=== PATIENT | male | born 1935 | race Caucasian/White ===

== ENCOUNTER 2018-01-13 08:10 | Day surgery (SDC) | payer MEDICARE, OTHER ==
[~2018-01-13 08:10] MED LIST: Povidone-Iodine 5% Sterile Ophth Soln 30 ML Bottle EYELF ONE
[2018-01-13] MEDS ORDERED: Dexamethasone 4 MG/ML SDV IV ONE (08:11)
[2018-01-13] MEDS ORDERED: Midazolam 1 MG/ML 2 ML SDV IV ONE (08:11)
[2018-01-13] MEDS ORDERED: Sodium Chloride 0.9% 10 ML Syringe IV ONE (08:11)
[2018-01-13] MEDS ORDERED: Moxifloxacin 0.5% Ophth Soln 3 ML Bottle EYELF ONE (08:30)
[2018-01-13] MEDS ORDERED: Timolol Maleate 0.5% Ophth Soln 5 ML Bottle EYELF ONE (08:30)
[2018-01-13] MEDS ORDERED: Acetaminophen 325 MG Tab PO PRN (08:30)
[2018-01-13] MEDS ORDERED: Cataract Ophth Solution EYELF ONE (08:30)
[2018-01-13] MEDS ORDERED: Sodium Chloride 0.9% 10 ML Syringe FLUSH PRN (08:30)
[2018-01-13] MEDS ORDERED: Phenylephrine 10% Ophth Soln 5 ML Bot EYELF PRN (08:30)
[2018-01-13] MEDS ORDERED: Phenylephrine 10% Ophth Soln 5 ML Bot EYELF ONE (08:30)
[2018-01-13] MEDS ORDERED: Ondansetron 4 MG/2 ML SDV IVPUSH PRN (08:30)
[2018-01-13] MEDS ORDERED: Proparacaine 0.5% Ophth Soln 15 ML Bottle EYELF ONE (08:30)
[2018-01-13] MEDS ORDERED: Tetracaine HCl/PF 0.5% 4 ML Bottle EYELF ONE (09:44)
[2018-01-13] MEDS ORDERED: Vancomycin 500 MG SDV EYELF ONE (09:45)
[2018-01-13] MEDS ORDERED: Apraclonidine 0.5% Ophth Soln 5 ML Bot EYELF ONE (09:45)
[2018-01-13] MEDS ORDERED: Lidocaine 1% 30 ML SDV ONE (09:45)
[2018-01-13] MEDS ORDERED: Dexamethasone/Neomycin/Polymyxin B Ophth Oint 3.5 GM Tube EYELF ONE (09:45)
[2018-01-13] MEDS ORDERED: Balanced Salt Solution Ophth Irrig 500 ML Bottle IOCULAR ONE (09:46)
[2018-01-13] MEDS ORDERED: Chondroitin Sulfate/Hyaluronate Sodium Ophth Inj 0.5 ML Syringe IOCULAR ONE (09:46)
[2018-01-13] MEDS ORDERED: Diclofenac Sodium 0.1% Ophth Soln 5 ML Bottle EYELF ONE (09:46)
--- NOTE | 2018-01-14 07:26 | OR ---
DATE: 01/13/2018 PREOPERATIVE DIAGNOSIS: Visually significant mixed cataract, left eye. POSTOPERATIVE DIAGNOSIS: Visually significant mixed cataract, left eye. PROCEDURE: Extracapsular cataract extraction with intraocular lens implant, left eye. ANESTHESIA: Topical/local MAC. COMPLICATIONS: None. INDICATION: Mr. Coker was seen in the clinic with complaints of difficulty with bright lights and glare difficulty seeing his speedometer. His examination revealed visually significant mixed nuclear and cortical cataract. Visual acuity with oncoming light is at the level of 20 unable. I explained options, I offered cataract surgery, and I explained risks. He is symptomatic and requested surgery to improve vision and function. We discussed the implant options. He requested a monofocal implant. OPERATIVE DESCRIPTION: After informed consent was obtained and the risks, benefits, and alternatives were explained, the patient was brought to the operative suite and topical anesthesia was administered. The patient was then prepped and draped in the sterile fashion and attention was placed on the left eye. A sterile lid speculum was placed into the left eye to allow operative exposure. A full-thickness paracentesis was made in the temporal portion of the operative eye. Preservative-free lidocaine 0.1 mL was injected into the anterior chamber followed by viscoelastic. A full-thickness corneal incision was then made into the anterior chamber. A bent needle cystotome was used to create a small lisa in the anterior capsule. The capsulorrhexis forceps was then used to create a 360-degree curvilinear capsulorrhexis. The nucleus was then removed using a phacoemulsification handpiece and the remaining cortical material was then removed with irrigation and aspiration handpiece. Following removal of the cortical material, the capsular bag was then inspected and noted to be free of any holes or tears. Viscoelastic was then injected into the capsular bag and the intraocular lens was inserted into the capsular bag. The viscoelastic material was then removed from both the anterior and posterior chambers and from behind the IOL. The lens and capsular bag were then reinspected. The IOL was well centered and the capsular bag intact. The wound and paracentesis sites were inspected and hydrated with balanced saline solution. Both were found to be self- sealing. The intraocular pressure was assessed digitally and found to be within normal range. A good red reflex was noted at the completion of the procedure. No complications occurred during the operation. At the completion of the procedure, Maxitrol, Voltaren, and Iopidine drops were placed into the operative eye. A sterile eye shield was placed over the operative eye and the patient was transported to the postoperative recovery area having tolerated the procedure well. Postoperative instructions were given along with a postoperative appointment. The patient was advised to call with any questions or concerns. [facility] /[id number]
== END 2018-01-13 10:46 | disposition home or self-care (01) ==
LOC: DL.SDS 08:10
PROVIDERS: ATTEND Ophthalmology
DX: H25.812 Combined forms of age-related cataract, left eye (principal); I48.91 Unspecified atrial fibrillation; E55.9 Vitamin D deficiency, unspecified; Z79.01 Long term (current) use of anticoagulants; Z95.0 Presence of cardiac pacemaker; Z90.49 Acquired absence of other specified parts of digestive tract; Z87.891 Personal history of nicotine dependence
CPT/HCPCS: 00142; 66984; A9270; J1100; J2250; J3370; J7050; V2632

== ENCOUNTER 2018-03-10 07:52 | Day surgery (SDC) | payer MEDICARE, OTHER ==
[~2018-03-10 07:52] MED LIST changes: +Acetaminophen 325 MG Tab PO PRN; +Cataract Ophth Solution EYERT ONE; +Lidocaine 1% 30 ML SDV INJECT ONE; +Moxifloxacin 0.5% Ophth Soln 3 ML Bottle EYERT ONE; +Ondansetron 4 MG/2 ML SDV IVPUSH PRN; +Phenylephrine 10% Ophth Soln 5 ML Bot EYERT ONE; +Phenylephrine 10% Ophth Soln 5 ML Bot EYERT PRN; -Povidone-Iodine 5% Sterile Ophth Soln 30 ML Bottle EYELF ONE; +Povidone-Iodine 5% Sterile Ophth Soln 30 ML Bottle EYERT ONE; +Proparacaine 0.5% Ophth Soln 15 ML Bottle EYERT ONE; +Sodium Chloride 0.9% 10 ML Syringe FLUSH PRN; +Timolol Maleate 0.5% Ophth Soln 5 ML Bottle EYERT ONE
[2018-03-10] MEDS ORDERED: Midazolam 1 MG/ML 2 ML SDV IV ONE (07:53)
[2018-03-10] MEDS ORDERED: Dexamethasone 4 MG/ML SDV IV ONE (07:53)
[2018-03-10] MEDS ORDERED: Cataract Ophth Solution EYERT ONE (08:00)
[2018-03-10] MEDS ORDERED: Phenylephrine 10% Ophth Soln 5 ML Bot EYERT PRN (08:00)
[2018-03-10] MEDS ORDERED: Acetaminophen 325 MG Tab PO PRN (08:00)
[2018-03-10] MEDS ORDERED: Povidone-Iodine 5% Sterile Ophth Soln 30 ML Bottle EYERT ONE ×3 (08:00→09:17)
[2018-03-10] MEDS ORDERED: Phenylephrine 10% Ophth Soln 5 ML Bot EYERT ONE (08:00)
[2018-03-10] MEDS ORDERED: Moxifloxacin 0.5% Ophth Soln 3 ML Bottle EYERT ONE (08:00)
[2018-03-10] MEDS ORDERED: Ondansetron 4 MG/2 ML SDV IVPUSH PRN (08:00)
[2018-03-10] MEDS ORDERED: Sodium Chloride 0.9% 10 ML Syringe FLUSH PRN (08:00)
[2018-03-10] MEDS ORDERED: Timolol Maleate 0.5% Ophth Soln 5 ML Bottle EYERT ONE (08:00)
[2018-03-10] MEDS ORDERED: Proparacaine 0.5% Ophth Soln 15 ML Bottle EYERT ONE (08:00)
[2018-03-10] MEDS ORDERED: Tetracaine HCl/PF 0.5% 4 ML Bottle EYERT ONE (09:17)
[2018-03-10] MEDS ORDERED: Lidocaine 1% 30 ML SDV INJECT ONE (09:23)
[2018-03-10] MEDS ORDERED: Vancomycin 500 MG SDV EYERT ONE (09:23)
[2018-03-10] MEDS ORDERED: Balanced Salt Solution Ophth Irrig 500 ML Bottle IOCULAR ONE (09:25)
[2018-03-10] MEDS ORDERED: Chondroitin Sulfate/Hyaluronate Sodium Ophth Inj 0.5 ML Syringe IOCULAR ONE (09:25)
[2018-03-10] MEDS ORDERED: Apraclonidine 0.5% Ophth Soln 5 ML Bot EYERT ONE (09:31)
[2018-03-10] MEDS ORDERED: Dexamethasone/Neomycin/Polymyxin B Ophth Oint 3.5 GM Tube EYERT ONE (09:32)
--- NOTE | 2018-03-10 10:08 | OR ---
DATE: 03/10/2018 PREOPERATIVE DIAGNOSIS: Visually significant mixed cataract, right eye. POSTOPERATIVE DIAGNOSIS: Visually significant mixed cataract, right eye. PROCEDURE: Extracapsular cataract extraction with intraocular lens implant, right eye. ANESTHESIA: Topical/local MAC. COMPLICATIONS: None. INDICATION: Mr. Lamar was seen in the clinic. He is unhappy with his vision. He has noticed a progressive change. His clinical examination reveals visually significant cataract with both nuclear and cortical change. He is unhappy with his vision. He has requested cataract surgery. We have discussed implant options. He has requested a monofocal implant. He is comfortable wearing glasses following surgery. I explained the risks preoperatively including the potential for infection, retinal detachment, loss of vision, and need for additional surgery amongst others. He has voiced an understanding with respect to risks and wished to proceed. OPERATIVE DESCRIPTION: After informed consent was obtained and the risks, benefits, and alternatives were explained, the patient was brought to the operative suite and topical anesthesia was administered. The patient was then prepped and draped in the sterile fashion and attention was placed on the right eye. A sterile lid speculum was placed into the right eye to allow operative exposure. A full-thickness paracentesis was made in the temporal portion of the operative eye. Preservative-free lidocaine 0.1 mL was injected into the anterior chamber followed by viscoelastic. A full-thickness corneal incision was then made into the anterior chamber. A bent needle cystotome was used to create a small lisa in the anterior capsule. The capsulorrhexis forceps was then used to create a 360-degree curvilinear capsulorrhexis. The nucleus was then removed using a phacoemulsification handpiece, and the remaining cortical material was then removed with irrigation and aspiration handpiece. Following removal of the cortical material, the capsular bag was then inspected and noted to be free of any holes or tears. Viscoelastic was then injected into the capsular bag, and the intraocular lens was inserted into the capsular bag. The viscoelastic material was then removed from both the anterior and posterior chambers and from behind the IOL. The lens and capsular bag were then reinspected. The IOL was well centered and the capsular bag intact. The wound and paracentesis sites were inspected and hydrated with balanced saline solution. Both were found to be self-sealing. The intraocular pressure was assessed digitally and found to be within normal range. A good red reflex was noted at the completion of the procedure. No complications occurred during the operation. At the completion of the procedure, Maxitrol, Voltaren, and Iopidine drops were placed into the operative eye. A sterile eye shield was placed over the operative eye, and the patient was transported to the postoperative recovery area having tolerated the procedure well. Postoperative instructions were given along with a postoperative appointment. The patient was advised to call with any questions or concerns. [facility] /[id number]
== END 2018-03-10 10:30 | disposition home or self-care (01) ==
LOC: DL.SDS 07:52
PROVIDERS: ATTEND Ophthalmology
DX: H25.811 Combined forms of age-related cataract, right eye (principal); I12.9 Hypertensive chronic kidney disease with stage 1 through stage 4 chronic kidney disease, or unspecified chronic kidney disease; N18.3 Chronic kidney disease, stage 3 (moderate); E03.9 Hypothyroidism, unspecified; I48.91 Unspecified atrial fibrillation; D69.6 Thrombocytopenia, unspecified; Z79.01 Long term (current) use of anticoagulants; Z79.899 Other long term (current) drug therapy; Z95.0 Presence of cardiac pacemaker
CPT/HCPCS: 00142; A9270-GY; J1100; J2250; J3370; J7050; V2632

== ENCOUNTER 2018-04-09 08:24 | Day surgery (SDC) | payer MEDICARE, OTHER ==
[~2018-04-09 08:24] MED LIST changes: -Acetaminophen 325 MG Tab PO PRN; -Cataract Ophth Solution EYERT ONE; -Lidocaine 1% 30 ML SDV INJECT ONE; +Midazolam 1 MG/ML 2 ML SDV ONE; -Moxifloxacin 0.5% Ophth Soln 3 ML Bottle EYERT ONE; -Ondansetron 4 MG/2 ML SDV IVPUSH PRN; -Phenylephrine 10% Ophth Soln 5 ML Bot EYERT ONE; -Phenylephrine 10% Ophth Soln 5 ML Bot EYERT PRN; -Povidone-Iodine 5% Sterile Ophth Soln 30 ML Bottle EYERT ONE; -Proparacaine 0.5% Ophth Soln 15 ML Bottle EYERT ONE; -Sodium Chloride 0.9% 10 ML Syringe FLUSH PRN; -Timolol Maleate 0.5% Ophth Soln 5 ML Bottle EYERT ONE; +fentaNYL 100 MCG/2 ML SDV ONE
[2018-04-09] MEDS ORDERED: Midazolam 1 MG/ML 2 ML SDV IV ONE ×2 (08:25→09:59)
[2018-04-09] MEDS ORDERED: Sodium Chloride 0.9% 1,000 ML IV SCH (09:00)
[2018-04-09] MEDS ORDERED: Benzocaine 20% Oral Spray 59.2 ML Canister ONE (09:05)
[2018-04-09] MEDS ORDERED: Midazolam 1 MG/ML 2 ML SDV ONE (12:04)
--- NOTE | 2018-04-09 16:32 | OR ---
DATE: 04/09/2018 PREOPERATIVE DIAGNOSIS: Gastroesophageal reflux disease symptoms and increased belching. POSTOPERATIVE DIAGNOSIS: Gastroesophageal reflux disease symptoms and increased belching. PROCEDURE: EGD with photograph. ANESTHESIA: Conscious sedation with IV Versed. SPECIMEN: None. OPERATIVE FINDINGS: A small 2-cm hiatal hernia. No evidence of significant reflux esophagitis and pre-pyloric benign hyperplastic polyp. RECOMMENDATION: Follow up as needed. INDICATION FOR PROCEDURE: This is an 83-year-old male has some GERD symptoms, but he really gets by with just taking Tums. He also, according to his , has increasing belching and abdominal bloating. DESCRIPTION OF PROCEDURE: After adequate preparation, a gastroscope was inserted into the esophagus. This was taken down to the EG junction. This showed a small 2 cm hiatal hernia, but no evidence of distal esophagitis, strictures, bleeding, or obstruction. The scope was advanced into the stomach. Both forward and retroflexed views were done. The only abnormality noted was a hyperplastic-appearing polyp right at the pyloric outlet. This, however, was nonobstructing, but could in an older person like this be somewhat restrictive causing more air in the stomach, but this is certainly not a malignant tumor and certainly not obstructing. The scope was advanced into the duodenum. The 1st and 2nd part were normal. A photograph of the duodenum was taken. Air was suctioned from the stomach and the scope removed. [facility] /[id number]
== END 2018-04-09 11:40 | disposition home or self-care (01) ==
LOC: DL.ENDO 08:24
PROVIDERS: ATTEND Surgery
DX: K21.9 Gastro-esophageal reflux disease without esophagitis (principal); R14.2 Eructation; K44.9 Diaphragmatic hernia without obstruction or gangrene
CPT/HCPCS: 43235; J2250; J7030

== ENCOUNTER 2018-04-15 22:32 | Emergency (ER) | payer MEDICARE, OTHER ==
--- NOTE | 2018-04-15 23:06 | EDM.PDOC ---
ED HPI GENERAL MEDICAL PROBLEM - General Chief Complaint: General Stated Complaint: WEAK [id number] OR [id number] Time Seen by Provider: 04/15/18 23:03 Source of Information: Reports: Patient, Family History Limitations: Reports: No Limitations - History of Present Illness INITIAL COMMENTS - FREE TEXT/NARRATIVE: weakness since thursday developed fever today and weakness worsen. spouse states last time pt got fever & weakness he ended up almost dying. Treatments [facility]: Reports: Acetaminophen Other Treatments [facility]: Tylenol 2030-100.8 - Related Data Allergies Allergy/AdvReac Type Severity Reaction Status Date / Time No Known Allergies Allergy Verified 04/09/18 08:53 Home Meds: Home Meds Digoxin 125 mcg PO .QOD 01/11/18 [History] Levothyroxine Sodium [Synthroid] 1 - 2 tab PO ASDIRECTED 01/11/18 [History] Multivitamin [Multivitamins] 1 tab PO DAILY 01/11/18 [History] Warfarin Sodium 1 - 1.5 tab PO BEDTIME 01/11/18 [History] Glucosamine/D3/Boswellia Mari [Osteo Bi-Flex Caplet] 1 tab PO DAILY 04/07/18 [ History] Hydrocortisone [Proctozone-HC 2.5% Crm] 1 unit TOP DAILY PRN 04/07/18 [History] Multivitamin with Minerals [Multiple Vitamin] 1 tab PO DAILY 04/07/18 [History] Sennosides/Docusate Sodium [Senna-Docusate Sodium] 2 tab PO DAILY PRN 04/07/18 [ History] Lutein/Minerals/Vit A,C & E [I-Robbi] 1 tab PO DAILY 04/09/18 [History] Past Medical History HEENT History: Reports: Cataract Cardiovascular History: Reports: Afib, Pacemaker Respiratory History: Reports: Pneumonia, Recurrent Gastrointestinal History: Reports: Diverticulosis Genitourinary History: Reports: Renal Disease Other Genitourinary History: Has one kidney, 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 Dermatologic History: Reports: Psoriasis - Infectious Disease History Infectious Disease History: Reports: Chicken Pox, Measles, Mumps - Past Surgical History HEENT Surgical History: Reports: None, Other (See Below) Other HEENT Surgeries/Procedures: cataract surgery Cardiovascular Surgical History: Reports: Pacer Respiratory Surgical History: Reports: Thoracentesis GI Surgical History: Reports: Appendectomy, Cholecystectomy, Colonoscopy, EGD, Hernia Repair/Other Male Surgical History: Reports: Other (See Below) Other Male Surgeries/Procedures: radical nephrectomy L) Musculoskeletal Surgical History: Reports: Hip Replacement, Shoulder Replacement , Shoulder Surgery, Other (See Below) Other Musculoskeletal Surgeries/Procedures:: lumbar spine surg, bone marrow bx Social & Family History - Family History Family Medical History: Noncontributory Oncologic: Reports: Prostate - Tobacco Use Smoking Status *Q: Former Smoker Used Tobacco, but Quit: Yes Month/Year Tobacco Last Used: 03/1978 - Caffeine Use Caffeine Use: Reports: Tea Other Caffeine Use: 1 at supper - Recreational Drug Use Recreational Drug Use: No ED ROS GENERAL - Review of Systems Review Of Systems: ROS reveals no pertinent complaints other than HPI. ED EXAM, GENERAL - Physical Exam Exam: See Below Exam Limited By: No Limitations General Appearance: Alert, WD/WN, Mild Distress, Other (distraught) Ears: Hearing Grossly Normal Throat/Mouth: Normal Voice, No Airway Compromise Head: Atraumatic Neck: Non-Tender, Full Range of Motion Respiratory/Chest: No Respiratory Distress Cardiovascular: Regular Rate, Rhythm GI/Abdominal: Soft, Non-Tender Neurological: Alert, Oriented, Normal Cognition, No Motor/Sensory Deficits Psychiatric: Flat Affect Skin Exam: Warm, Dry, Normal Color Lymphatic: No Adenopathy Course - Vital Signs Last Recorded V/S: Last Vital Signs Temp 36.9 C 04/15/18 22:41 Pulse 84 04/15/18 23:46 Resp 20 04/15/18 23:46 BP 91/57 L 04/15/18 23:46 Pulse Ox 96 04/15/18 23:46 - Orders/Labs/Meds Orders: Active Orders 24 hr Category Date Time Status EKG Documentation Completion [RC] STAT Care 04/15/18 23:02 Active URINALYSIS W/MICROSCOPIC [UA W/MICROSCOPIC] [URIN] Stat Lab 04/15/18 23:47 Ordered Acetaminophen [Tylenol] Med 04/16/18 00:36 Once 325 mg PO NOW ONE Medication Orders Acetaminophen (Tylenol) 325 mg PO NOW ONE Stop: 04/16/18 00:37 Labs: Laboratory Tests 04/15/18 04/15/18 04/15/18 Range/Units 23:09 23:09 23:09 WBC 4.6 L (5.0-10.0) 10^3/uL RBC 2.41 L (4.6-6.2) 10^6/uL Hgb 8.5 L (14.0-18.0) g/dL Hct 26.0 L (40.0-54.0) % MCV 107.9 H (80-100) fL MCH 35.3 H (27.0-34.0) pg MCHC 32.7 L (33.0-35.0) g/dL Plt Count 64 L (150-450) 10^3/uL Neut % (Auto) 53.1 (42.2-75.2) % Lymph % (Auto) 36.0 (20.5-50.1) % [place] % (Auto) 10.3 H (2-8) % Eos % (Auto) 0.2 L (1.0-3.0) % Baso % (Auto) 0.4 (0.0-1.0) % Add Manual Diff Yes Neutrophils % (Manual) 50 (42-75) % Band Neutrophils % 3 % Lymphocytes % (Manual) 43 (20-50) % Monocytes % (Manual) 4 (2-8) % Toxic Granulation 1+ slight Platelet Estimate Decreased Macrocytosis 3+ marked Elliptocytes 2+ moderate PT 15.1 H (9.0-12.0) SEC INR 1.5 H (0.9-1.2) Sodium 133 L (135-145) mmol/L Potassium 5.1 H (3.6-5.0) mmol/L Chloride 103 (101-111) mmol/L Carbon Dioxide 24.0 (21.0-31.0) mmol/L Anion Gap 11.1 BUN 37 H (7-18) mg/dL Creatinine 2.0 H (0.6-1.3) mg/dL Est Cr Clr Drug Dosing 31.07 mL/min Estimated GFR (MDRD) 32 BUN/Creatinine Ratio 18.50 Glucose 104 (74-105) mg/dL Calcium 8.4 (8.4-10.2) mg/dl Total Bilirubin 1.4 H (0.2-1.0) mg/dL AST 19 (10-42) IU/L ALT 12 (10-60) IU/L Alkaline Phosphatase 48 (42-121) IU/L Troponin I < 0.02 (0.00-0.02) ng/ml Total Protein 6.3 L (6.7-8.2) g/dl Albumin 3.7 (3.2-5.5) g/dl Globulin 2.6 Albumin/Globulin Ratio 1.42 Urine Color (YELLOW) Urine Appearance (CLEAR) Urine pH (5.0-9.0) Ur Specific Edward (1.005-1.030) Urine Protein (NEGATIVE) Urine Glucose (UA) (NEGATIVE) Urine Ketones (NEGATIVE) Urine Occult Blood (NEGATIVE) Urine Nitrite (NEGATIVE) Urine Bilirubin (NEGATIVE) Urine Urobilinogen (0.2-1.0) mg/dL Ur Leukocyte Esterase (NEGATIVE) Urine RBC /HPF Urine WBC (0-5/HPF) /HPF Ur Epithelial Cells /HPF Urine Bacteria (0-FEW/HPF) /HPF 05//18 Range/Units 23:47 WBC (5.0-10.0) 10^3/uL RBC (4.6-6.2) 10^6/uL Hgb (14.0-18.0) g/dL Hct (40.0-54.0) % MCV (80-100) fL MCH (27.0-34.0) pg MCHC (33.0-35.0) g/dL Plt Count (150-450) 10^3/uL Neut % (Auto) (42.2-75.2) % Lymph % (Auto) (20.5-50.1) % [place] % (Auto) (2-8) % Eos % (Auto) (1.0-3.0) % Baso % (Auto) (0.0-1.0) % Add Manual Diff Neutrophils % (Manual) (42-75) % Band Neutrophils % % Lymphocytes % (Manual) (20-50) % Monocytes % (Manual) (2-8) % Toxic Granulation Platelet Estimate Macrocytosis Elliptocytes PT (9.0-12.0) SEC INR (0.9-1.2) Sodium (135-145) mmol/L Potassium (3.6-5.0) mmol/L Chloride (101-111) mmol/L Carbon Dioxide (21.0-31.0) mmol/L Anion Gap BUN (7-18) mg/dL Creatinine (0.6-1.3) mg/dL Est Cr Clr Drug Dosing mL/min Estimated GFR (MDRD) BUN/Creatinine Ratio Glucose (74-105) mg/dL Calcium (8.4-10.2) mg/dl Total Bilirubin (0.2-1.0) mg/dL AST (10-42) IU/L ALT (10-60) IU/L Alkaline Phosphatase (42-121) IU/L Troponin I (0.00-0.02) ng/ml Total Protein (6.7-8.2) g/dl Albumin (3.2-5.5) g/dl Globulin Albumin/Globulin Ratio Urine Color Yellow (YELLOW) Urine Appearance Slightly cloudy (CLEAR) Urine pH 6.5 (5.0-9.0) Ur Specific Edward <= 1.005 (1.005-1.030) Urine Protein Trace H (NEGATIVE) Urine Glucose (UA) Negative (NEGATIVE) Urine Ketones Negative (NEGATIVE) Urine Occult Blood Trace-lysed H (NEGATIVE) Urine Nitrite Negative (NEGATIVE) Urine Bilirubin Negative (NEGATIVE) Urine Urobilinogen 0.2 (0.2-1.0) mg/dL Ur Leukocyte Esterase Moderate H (NEGATIVE) Urine RBC 0-5 /HPF Urine WBC 20-30 H (0-5/HPF) /HPF Ur Epithelial Cells Rare /HPF Urine Bacteria Few (0-FEW/HPF) /HPF Meds: Medications Generic Name Dose Route Start Last Admin Trade Name Freq PRN Reason Stop Dose Admin Acetaminophen 325 mg 04/16/18 00:36 Tylenol PO 04/16/18 00:37 NOW ONE - Re-Assessments/Exams Free Text/Narrative Re-Assessment/Exam: 04/16/18 00:[address] Sykes @ [facility] who kindly accepted pt. 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
[2018-04-15 23:34] LABS: CHLORIDE,CL 103 mmol/L (101-111); SODIUM,NA 133 mmol/L (135-145)
[2018-04-16] MEDS ORDERED: Acetaminophen 325 MG Tab PO ONE (00:36)
== END 2018-04-16 01:19 ==
LOC: DL.ED 22:32
DX: N39.0 Urinary tract infection, site not specified (principal); Q79.9 Congenital malformation of musculoskeletal system, unspecified; E87.8 Other disorders of electrolyte and fluid balance, not elsewhere classified; Z79.899 Other long term (current) drug therapy; Z87.891 Personal history of nicotine dependence
CPT/HCPCS: 36415; 71045; 80053; 81001; 84484; 85025; 85610; 93005; 93010; 99285; A9270